=== PATIENT | male | born 2000 | race African-American/Black ===

== ENCOUNTER 2023-05-02 16:15 | Emergency (ER) | payer OTHER ==
[~2023-05-02] VITALS: Ht 162.6 cm; Wt 76.2 kg
[2023-05-02 16:16] VITALS: TEMP 98.6; O2SAT 99
[2023-05-02] MEDS ORDERED: KETOROLAC 30 MG/ML 1ML VIAL IV ONE (16:50)
[2023-05-02] MEDS: NS 1,000 ML IV ONE ×2 (16:59→18:07)
[2023-05-02 17:22] LABS: BASO % 0.3 % (0.0-1.0); EOS # 0.1 10^3/uL (0.0-0.5); EOS % 0.7 % (0.0-3.0); HEMATOCRIT 47.9 % (42.0-52.0); HEMOGLOBIN 15.9 g/dl (13.5-17.5); LYMPH # 2.1 10^3/uL (1.5-5.0); LYMPH % 21.5 % (24.0-44.0); MEAN CORPUSCULAR HEMOGLOBIN 29.7 pg (27.0-33.0); MEAN CORPUSCULAR HGB CONC 33.2 g/dl (32.0-36.5); MEAN CORPUSCULAR VOLUME 89.5 fl (80.0-96.0); MONO # 0.7 10^3/uL (0.0-0.8); NEUTROPHILS # 6.7 10^3/uL (1.5-8.5); NEUTROPHILS % 70.1 % (36.0-66.0); PLATELET COUNT, AUTOMATED 151 10^3/uL (150-450); RED BLOOD COUNT 5.35 10^6/uL (4.30-6.10); WHITE BLOOD COUNT 9.6 10^3/uL (4.0-10.0)
[2023-05-02 17:44] LABS: CK-MB VALUE MASS < 1.0 NG/ML (<3.6)
[2023-05-02 17:47] LABS: CPK CREATINE PHOSPHOKINASE 381 U/L (46-171); MB/CK RELATIVE INDEX 0.26 (< OR =4)
[2023-05-02 17:50] VITALS: BP 153/78
[2023-05-02] MEDS ORDERED: ISOVUE-370 76% 100ML VIAL As Ordered ONE (18:05)
== END 2023-05-02 18:54 | disposition home or self-care (01) ==
LOC: M ED 16:15
DX: R07.89 Other chest pain (principal); F17.290 Nicotine dependence, other tobacco product, uncomplicated
CPT/HCPCS: 71046; 71275; 80047; 82550; 82553; 84484; 85025; 85379; 93005; 96361; 96374; 99284; J1885; Q9967

== ENCOUNTER 2024-07-23 19:25 | Inpatient (IN) | payer OTHER ==
[~2024-07-23] VITALS: Ht 162.6 cm; Wt 77.2 kg
[2024-07-23 20:26] LABS: HEMATOCRIT 43.3 % (42.0-52.0); MEAN CORPUSCULAR HEMOGLOBIN 30.1 pg (27.0-33.0); MEAN CORPUSCULAR HGB CONC 34.6 g/dl (32.0-36.5); MEAN CORPUSCULAR VOLUME 86.8 fl (80.0-96.0); PLATELET COUNT, AUTOMATED 231 10^3/uL (150-450); RED BLOOD COUNT 4.99 10^6/uL (4.30-6.10); WHITE BLOOD COUNT 9.1 10^3/uL (4.0-10.0)
[2024-07-23] MEDS: NICOTINE 21MG/24HR 1 EA TRANSDERMAL TD ONE (20:43)
[2024-07-23 20:54] LABS: AMPHETAMINES LEVEL URINE NEGATIVE (NEGATIVE); BARBITURATES URINE NEGATIVE (NEGATIVE); BENZODIAZEPINES URINE NEGATIVE (NEGATIVE); CANNABINOIDS URINE NEGATIVE (NEGATIVE); COCAINE METABOLITE URINE NEGATIVE (NEGATIVE); METHADONE URINE NEGATIVE (NEGATIVE); OPIATES URINE NEGATIVE (NEGATIVE); PHENCYCLIDINE URINE NEGATIVE (NEGATIVE)
[2024-07-23 20:56] LABS: ETHYL ALCOHOL (ETHANOL) < 0.003 % (0.000-0.010)
[2024-07-23 20:58] LABS: ALBUMIN 4.5 G/DL (3.2-5.2); ALKALINE PHOSPHATASE 73 U/L (40-129); ALT/SGPT 21 U/L (7.0-40); AST/SGOT 22 U/L (<34); BILIRUBIN,DIRECT 0.2 MG/DL (<0.4); BILIRUBIN,TOTAL 0.5 MG/DL (0.3-1.2); BLOOD UREA NITROGEN 16 MG/DL (9-23); CALCIUM LEVEL 9.8 MG/DL (8.5-10.1); CARBON DIOXIDE LEVEL 24 MMOL/L (20-31); CHLORIDE LEVEL 103 MMOL/L (98-107); CREATININE FOR GFR 0.65 MG/DL (0.70-1.30); GLOMERULAR FILTRATION RATE > 90.0 (>60); GLUCOSE, FASTING 143 MG/DL (60-100); POTASSIUM SERUM 3.7 MMOL/L (3.5-5.1); SALICYLATE LEVEL < 3.0 MG/DL (<30); SODIUM LEVEL 137 MMOL/L (136-145); TOTAL PROTEIN 7.7 G/DL (5.7-8.2)
[2024-07-23 21:00] LABS: THYROID STIMULATING HORMONE 1.014 uIU/ML (0.55-4.78)
[2024-07-23] MEDS: ONDANSETRON 4MG ORAL DISINTEGRATING TAB PO ONE (21:19)
[2024-07-23] MEDS ORDERED: NALT50TA4 PO (21:28)
[2024-07-23] MEDS ORDERED: SERT50TA29 PO (21:28)
[2024-07-23] MEDS ORDERED: HOME MED LIST COMPLETE! XX SCH (21:30)
[2024-07-24] MEDS: SERTRALINE HCL 50 MG TAB PO SCH (09:27)
[2024-07-24] MEDS: NALTREXONE 50 MG TAB PO SCH (09:43)
[2024-07-24 11:32] VITALS: BP 131/78; TEMP 97.7; O2SAT 99
[2024-07-24] MEDS ORDERED: ACETAMINOPHEN 325 MG TAB PO PRN (12:15)
[2024-07-24] MEDS ORDERED: IBUPROFEN 400MG TAB PO PRN (12:15)
[2024-07-24] MEDS ORDERED: MOM 30ML SUSPENSION UDC PO PRN (12:15)
[2024-07-24] MEDS ORDERED: diphenhydrAMINE 25MG CAP PO PRN (12:15)
[2024-07-24] MEDS ORDERED: OLANZapine 5 MG TAB PO PRN (12:15)
[2024-07-24] MEDS ORDERED: MAALOX 30 ML SUSP *UDC PO PRN (12:15)
[2024-07-24] MEDS ORDERED: ONDANSETRON 4MG TAB PO SCH (14:00)
[2024-07-24 15:36] VITALS: BP 140/90; TEMP 98.3; O2SAT 97
[2024-07-24] MEDS ORDERED: ISOVUE-370 76% 100ML VIAL As Ordered ONE (16:18)
[2024-07-24 16:31] LABS: LIPASE 48 U/L (12-53)
[2024-07-24 16:33] LABS: AMYLASE 76 U/L (30-118)
[2024-07-24] MEDS: METAMUCIL (PSYLLIUM) PACKET PO SCH (17:40)
[2024-07-24 18:47] LABS: LIPASE 37 U/L (12-53)
[2024-07-24 18:49] LABS: AMYLASE 65 U/L (30-118)
[2024-07-24] MEDS: MIRALAX *UNIT DOSE* 17GM PACKET PO SCH (18:59)
[2024-07-24] MEDS: KETOROLAC 60MG 2ML VIAL IM ONE (19:11)
[2024-07-25] MEDS: ONDANSETRON 4MG TAB PO PRN (03:09)
[2024-07-25 06:44] VITALS: BP 132/67; TEMP 98.4; O2SAT 97
[2024-07-25] MEDS: NICOTINE 21MG/24HR 1 EA TRANSDERMAL TD SCH (08:33)
[2024-07-25] MEDS ORDERED: NICOTINE 21MG/24HR 1 EA TRANSDERMAL TD SCH (09:00)
[2024-07-25] MEDS: NALTREXONE 50 MG TAB PO SCH (09:51)
[2024-07-25 16:06] VITALS: BP 123/73; TEMP 98.2; O2SAT 97
[2024-07-25] MEDS: traZODone 50 MG TAB PO PRN (20:37)
[2024-07-26 06:46] VITALS: BP 138/81; TEMP 97.6; O2SAT 96
[2024-07-26] MEDS: SERTRALINE HCL 50 MG TAB PO SCH (09:55)
[2024-07-26] MEDS: guaiFENesin ER TABLET 600 MG TAB PO SCH (11:00)
[2024-07-26] MEDS: PROMETHAZINE 25MG/ML 1ML VIAL IM ONE (11:07)
[2024-07-26 14:39] VITALS: BP 136/83; TEMP 97.7; O2SAT 97
[2024-07-27 07:04] VITALS: BP 129/77; TEMP 97.6; O2SAT 98
[2024-07-27] MEDS ORDERED: MIRA33506 PO (10:22)
[2024-07-27] MEDS ORDERED: SERT50TA29 PO (10:22)
[2024-07-27] MEDS ORDERED: TRAZ-252 PO (10:22)
[2024-07-27] MEDS ORDERED: META1POW PO (10:22)
== END 2024-07-27 11:42 | disposition home or self-care (01) | DRG 880 ==
LOC: M ED 19:25 → M ED INP 07-24 09:44 → M PSY 07-24 10:57
PROVIDERS: ADMIT Psychiatry & Neurology Psychiatry; ATTEND Psychiatry & Neurology Psychiatry
DX: F41.1 Generalized anxiety disorder (principal); R45.851 Suicidal ideations; F43.10 Post-traumatic stress disorder, unspecified; F17.290 Nicotine dependence, other tobacco product, uncomplicated; R10.11 Right upper quadrant pain; F32.A Depression, unspecified; B97.29 Other coronavirus as the cause of diseases classified elsewhere